=== PATIENT | male | born 1980 | race Caucasian/White ===

== ENCOUNTER 2017-12-25 13:29 | Emergency (ER) | payer OTHER, SELFPAY ==
--- NOTE | 2017-12-25 13:32 | ED_ITS ---
HPI - Chest Pain <ALMITA Hinkle - Last Filed: 12/25/17 21:30> General Chief Complaint: Chest Pain Stated Complaint: ANXIETY AND CHEST PAIN Time Seen by Provider: 12/25/17 13:31 History of Present Illness HPI narrative: 37-year-old male here for complaint of having chest pain on and off for the last 2 weeks. Patient has a history of an anxiety and atypical chest pain in the past. He denies any stressors or relievers of the pain. He reports that he has pain into his anterior chest over his left pectoral region. No nausea or vomiting. He reports that he did have a panic attack last night. No diaphoresis. No shortness of breath. He denies any other concerns or complaints. Related Data Home Medications Medication Instructions Recorded Confirmed famotidine [Pepcid] 20 mg PO QDAY #0 09/17/17 Previous Rx's Medication Instructions Recorded nortriptyline 10 mg PO HS #30 cap 10/14/17 Allergies Allergy/AdvReac Type Severity Reaction Status Date / Time No Known Drug Allergies Allergy Verified 12/25/17 13:52 Review of Systems <ALMITA Hinkle - Last Filed: 12/25/17 21:30> Constitutional Denies chills, Denies fever(s), Denies lethargy and Denies weakness Eyes Denies change in vision, Denies eye discharge, Denies irritation and Denies loss of vision Cardiovascular Reports chest pain, Denies dyspnea and Denies dyspnea on exertion Respiratory Denies cough, Denies dyspnea, Denies dyspnea on exertion and Denies wheezing Genitourinary Denies hematuria, Denies flank pain, Denies urinary incontinence and Denies urinary urgency Integumentary/Breasts Denies pruritus, Denies erythema, Denies rash and Denies wounds Neurologic Denies loss of vision and Denies weakness Psychiatric Reports anxiety Allergic/Immunologic Denies wheezing Exam <ALMITA Hinkle - Last Filed: 12/25/17 21:30> Initial Vital Signs Initial Vital Signs: Vital Signs Temperature 98.3 F 12/25/17 13:38 Pulse Rate 57 L 12/25/17 13:38 Respiratory Rate 16 12/25/17 13:38 Blood Pressure 139/84 H 12/25/17 13:38 Pulse Oximetry 99 12/25/17 13:38 Const General: cooperative and well developed Nutritional Appearance: well nourished Orientation: alert, awake, oriented x3 and not confused [facility] Mouth: oral mucosae normal, oropharynx normal and moist mucous membranes Chest Chest: normal inspection of the chest Resp Effort & Inspection: normal respiratory effort, able to speak in complete sentences and no respiratory distress Auscultation: clear to auscultation bilaterally Other: Perc score 0, Wells score of 0 Cardio Rate: regular rate Rhythm: regular rhythm Heart Sounds: no click, no gallops, no murmurs and no rubs Other: heart score 0 Skin General: no rashes or lesions noted, No jaundice and No petechiae Neuro General: alert, oriented x3, gait normal and no focal motor deficits Speech: speech normal <Nilesh Escamilla MD - Last Filed: 12/26/17 07:33> Initial Vital Signs Initial Vital Signs: Vital Signs Temperature 98.3 F 12/25/17 13:38 Pulse Rate 57 L 12/25/17 13:38 Respiratory Rate 16 12/25/17 13:38 Blood Pressure 139/84 H 12/25/17 13:38 Pulse Oximetry 99 12/25/17 13:38 Course <ALMITA Hinkle - Last Filed: 12/25/17 21:30> Orders Ordered: Discontinued Medications Aspirin (Aspirin Chew) 324 mg PO NOW ONE Stop: 12/25/17 13:42 Last Admin: 12/25/17 13:53 Dose: 324 mg Sodium Chloride (Normal Saline 0.9%) 1,000 mls @ 150 mls/hr IV CONT BELL Last Infusion: 12/25/17 15:39 Dose: 0 mls/hr Admin: 12/25/17 13:53 Dose: 150 mls/hr Lorazepam (Ativan) 1 mg IV NOW ONE Stop: 12/25/17 14:43 Last Admin: 12/25/17 14:58 Dose: 1 mg Vital Signs - 8 hr 12/25/17 13:38 12/25/17 13:54 12/25/17 14:21 Temperature 98.3 F Pulse Rate 57 L 57 L 50 L Respiratory Rate 16 11 L 11 L Blood Pressure 139/84 H Blood Pressure [Left Arm] 139/84 H 115/66 Pulse Oximetry 99 96 95 12/25/17 15:00 12/25/17 15:39 Temperature Pulse Rate 56 L 58 L Respiratory Rate 11 L 17 Blood Pressure 103/74 Blood Pressure [Left Arm] 112/66 Pulse Oximetry 97 94 <Nilesh Escamilla MD - Last Filed: 12/26/17 07:33> Orders Ordered: Discontinued Medications Aspirin (Aspirin Chew) 324 mg PO NOW ONE Stop: 12/25/17 13:42 Last Admin: 12/25/17 13:53 Dose: 324 mg Sodium Chloride (Normal Saline 0.9%) 1,000 mls @ 150 mls/hr IV CONT BELL Last Infusion: 12/25/17 15:39 Dose: 0 mls/hr Admin: 12/25/17 13:53 Dose: 150 mls/hr Lorazepam (Ativan) 1 mg IV NOW ONE Stop: 12/25/17 14:43 Last Admin: 12/25/17 14:58 Dose: 1 mg Vital Signs - 8 hr 12/25/17 13:38 12/25/17 13:54 12/25/17 14:21 Temperature 98.3 F Pulse Rate 57 L 57 L 50 L Respiratory Rate 16 11 L 11 L Blood Pressure 139/84 H Blood Pressure [Left Arm] 139/84 H 115/66 Pulse Oximetry 99 96 95 12/25/17 15:00 12/25/17 15:39 Temperature Pulse Rate 56 L 58 L Respiratory Rate 11 L 17 Blood Pressure 103/74 Blood Pressure [Left Arm] 112/66 Pulse Oximetry 97 94 MDM - Chest Pain <ALMITA Hinkle - Last Filed: 12/25/17 21:30> Lab Data Result diagrams: 12/25/17 13:40 12/25/17 13:40 Lab Results 12/25/17 12/25/17 Range/Units 13:40 13:40 WBC 5.7 (4.5-11.0) X10^3/uL RBC 4.96 (4.5-5.9) X10^6/uL Hgb 15.5 (13.5-17.5) g/dL Hct 44.8 (41-53) % MCV 90.3 (80-100) fL MCH 31.3 (26-34) PG MCHC 34.6 (30-36) % RDW 13.0 (11.6-14.8) % Plt Count 214 (150-400) X10^3/uL Neut % (Auto) 53.4 (50-75) % Lymph % (Auto) 37.6 (25-40) % [place] % (Auto) 7.4 (3-14) % Eos % (Auto) 0.8 L (2-4) % Baso % (Auto) 0.8 (0-2) % Neut # (Auto) 3100 (9340-7257) /uL Sodium 143 (137-145) mmol/L Potassium 3.6 (3.4-5.1) mmol/L Chloride 106.0 (98-107) mmol/L Carbon Dioxide 27.0 (22-32) mmol/L BUN 11.0 (9-20) mg/dL Creatinine 0.70 (0.66-1.25) mg/dL Estimated GFR > 60.0 (>60) mL/min BUN/Creatinine Ratio 15.7 (6-22) Glucose 103 H (70-100) mg/dL Calcium 9.2 (8.4-10.2) mg/dL Total Bilirubin 0.5 (0.2-1.3) mg/dL AST 17 (17-59) IU/L ALT 29 (21-72) IU/L Alkaline Phosphatase 53 (38-126) U/L Total Creatine Kinase 52 L (55-170) U/L Troponin I < 0.012 (0.01-0.034) ng/mL Total Protein 7.0 (6.3-8.2) g/dL Albumin 4.2 (3.5-5.0) g/dL Globulin 2.8 (1.7-4.1) g/dL Albumin/Globulin Ratio 1.5 (1.0-2.8) Lipase 113 (23-300) U/L Imaging Data Chest x-ray: Radiologist's impression: PROCEDURE: XR CHEST 1V INDICATIONS: Chest pain TECHNIQUE: One view of the chest was acquired. COMPARISON: [facility], , CHEST 1 VIEW, 09/11/2017, 0:01. FINDINGS: Surgical changes and devices: None. Lungs and pleura: No pleural effusions or pneumothorax. Lungs are clear. Mediastinum: Mediastinal contours appear normal. Heart size is normal. Bones and chest wall: No suspicious bony lesions. Overlying soft tissues appear unremarkable. IMPRESSION: No acute cardiopulmonary disease. Dictated by: Talon Klein M.D. on 12/25/2017 at 14:54 Approved by: Talon Klein M.D. on 12/25/2017 at 15:03 ECG Data Interpretation: EKG shows sinus bradycardia. No ST elevation or depression. No ectopy. Ventricular rate of 58. AL interval of 152. QRS duration of 111. QT of 414. EKG similar to a prior EKG dated September 11, 2017 MDM Narrative Medical decision making narrative: CBC and Chem panel were obtained were unremarkable. Cardiac enzymes was obtained and was negative. Patient had Wells score of 0 and perC core of 0. Chest x-ray was obtained was negative for any acute findings. EKG shows sinus bradycardia with no ST elevation or depression. No ectopy. Signs and symptoms presents as chest pain most likely related to anxiety or chest wall pain. [id number] Tylenol or Motrin as needed for any discomfort. Follow up with primary care provider in the next few days for re-evaluation and discussion of anxiety treatment. For any worsening symptoms return to the emergency room. <Nilesh Escamilla MD - Last Filed: 12/26/17 07:33> Lab Data Lab Results 12/25/17 12/25/17 Range/Units 13:40 13:40 WBC 5.7 (4.5-11.0) X10^3/uL RBC 4.96 (4.5-5.9) X10^6/uL Hgb 15.5 (13.5-17.5) g/dL Hct 44.8 (41-53) % MCV 90.3 (80-100) fL MCH 31.3 (26-34) PG MCHC 34.6 (30-36) % RDW 13.0 (11.6-14.8) % Plt Count 214 (150-400) X10^3/uL Neut % (Auto) 53.4 (50-75) % Lymph % (Auto) 37.6 (25-40) % [place] % (Auto) 7.4 (3-14) % Eos % (Auto) 0.8 L (2-4) % Baso % (Auto) 0.8 (0-2) % Neut # (Auto) 3100 (3820-0733) /uL Sodium 143 (137-145) mmol/L Potassium 3.6 (3.4-5.1) mmol/L Chloride 106.0 (98-107) mmol/L Carbon Dioxide 27.0 (22-32) mmol/L BUN 11.0 (9-20) mg/dL Creatinine 0.70 (0.66-1.25) mg/dL Estimated GFR > 60.0 (>60) mL/min BUN/Creatinine Ratio 15.7 (6-22) Glucose 103 H (70-100) mg/dL Calcium 9.2 (8.4-10.2) mg/dL Total Bilirubin 0.5 (0.2-1.3) mg/dL AST 17 (17-59) IU/L ALT 29 (21-72) IU/L Alkaline Phosphatase 53 (38-126) U/L Total Creatine Kinase 52 L (55-170) U/L Troponin I < 0.012 (0.01-0.034) ng/mL Total Protein 7.0 (6.3-8.2) g/dL Albumin 4.2 (3.5-5.0) g/dL Globulin 2.8 (1.7-4.1) g/dL Albumin/Globulin Ratio 1.5 (1.0-2.8) Lipase 113 (23-300) U/L Discharge Plan Departure Patient Disposition: Home, Self-Care Clinical Impression: Chest pain Discharge Date/Time: 12/25/17 15:40 Interventions: ED Discharge Assessment Last Done: 12/25/17 15:39 Instructions: DI for Atypical Chest Pain Activity Restrictions/Additional Instructions: Laboratory results EKG and chest x-ray today were normal. Signs and symptoms presents as chest wall pain that is at times secondary to anxiety. Use over-the- counter Tylenol or Motrin as needed for any discomfort. Follow up with her primary care provider for further evaluation and treatment and discussion of anxiety medication treatment. For any worsening symptoms return to the emergency room. Prescriptions: No Action famotidine [Pepcid] 20 MG tablet 20 mg PO QDAY Qty: 0 RF: 0 nortriptyline 10 MG capsule 10 mg PO HS Qty: 30 RF: 11 Referrals: On License Of [facility] [Provider Group] <Nilesh Escamilla MD - Last Filed: 12/26/17 07:33> Sign Out Provider Sign Out Attestation: I attest to the documentation recorded. I was the attending of record and available in the ED throught course. I agree with assessment and plan.
[2017-12-25 13:38] VITALS: BP 139/84; PULSE 57; RESP 16; TEMP 36.8; O2SAT 99
--- NOTE | 2017-12-25 13:41 | DI.RAD.S_ITS ---
PROCEDURE: XR CHEST 1V INDICATIONS: Chest pain TECHNIQUE: One view of the chest was acquired. COMPARISON: [facility], , CHEST 1 VIEW, 09/11/2017, 0:01. FINDINGS: Surgical changes and devices: None. Lungs and pleura: No pleural effusions or pneumothorax. Lungs are clear. Mediastinum: Mediastinal contours appear normal. Heart size is normal. Bones and chest wall: No suspicious bony lesions. Overlying soft tissues appear unremarkable. IMPRESSION: No acute cardiopulmonary disease. Dictated by: Talon Klein M.D. on 12/25/2017 at 14:54 Approved by: Talon Klein M.D. on 12/25/2017 at 15:03
[2017-12-25] MEDS: SODIUM CHLORIDE 0.9% 1,000 ML 150 ML IV (13:53)
[2017-12-25] MEDS: ASPIRIN 81 MG TAB 324 MG PO (13:53)
[2017-12-25 13:54] VITALS: BP 139/84; PULSE 57; RESP 11; O2SAT 96
[2017-12-25 13:57] LABS: Add Manual Diff / Slide Review NO; Basophils Percent Auto 0.8 % (0-2); Eosinophils Percent Auto 0.8 % (2-4); Hematocrit 44.8 % (41-53); Hemoglobin 15.5 g/dL (13.5-17.5); Lymphocytes Percent Auto 37.6 % (25-40); Mean Corpuscular HGB Conc 34.6 % (30-36); Mean Corpuscular Hemoglobin 31.3 PG (26-34); Mean Corpuscular Volume 90.3 fL (80-100); Monocytes Percent Auto 7.4 % (3-14); Neutrophils Absolute Auto 3100 /uL (3000-5900); Neutrophils Percent Auto 53.4 % (50-75); Platelet Count 214 X10^3/uL (150-400); Red Blood Cell Count 4.96 X10^6/uL (4.5-5.9); White Blood Cell Count 5.7 X10^3/uL (4.5-11.0)
[2017-12-25 14:14] LABS: Alanine Aminotransferase 29 IU/L (21-72); Albumin 4.2 g/dL (3.5-5.0); Albumin Globulin Ratio 1.5 (1.0-2.8); Alkaline Phosphatase 53 U/L (38-126); Aspartate Aminotransferase 17 IU/L (17-59); BUN Creatinine Ratio 15.7 (6-22); Bilirubin Total 0.5 mg/dL (0.2-1.3); Calcium 9.2 mg/dL (8.4-10.2); Creatine Kinase 52 U/L (55-170); Estimated Glomerular Filt Rate > 60.0 mL/min (>60); Globulin 2.8 g/dL (1.7-4.1); Glucose 103 mg/dL (70-100); HEMOLYSIS < 15 (0-50); Lipase 113 U/L (23-300); Potassium 3.6 mmol/L (3.4-5.1); Sodium 143 mmol/L (137-145)
[2017-12-25 14:21] VITALS: BP 115/66; PULSE 50; RESP 11; O2SAT 95
[2017-12-25 14:27] LABS: Troponin I < 0.012 ng/mL (0.01-0.034)
[2017-12-25] MEDS: LORazepam 2 MG/ML SYRINGE 1 MG IV (14:58)
[2017-12-25 15:00] VITALS: BP 112/66; PULSE 56; RESP 11; O2SAT 97
[2017-12-25 15:39] VITALS: BP 103/74; PULSE 58; RESP 17; O2SAT 94
== END 2017-12-25 15:40 | disposition home or self-care (01) ==
PROVIDERS: Emergency Provider Nurse Practitioner Family
DX: R07.9 Chest pain, unspecified (principal)
CPT/HCPCS: 36591; 71045; 80053; 82550; 82553; 83690; 84484; 85025; 93005; 93041; 96361; 96374; 99283; 99285; J2060

== ENCOUNTER → 2018-03-25 16:35 | Outpatient (CLI) | payer OTHER, SELFPAY ==
--- NOTE | 2018-03-25 16:39 | DI.RAD.S_ITS ---
PROCEDURE: XR FOREARM RT 2V INDICATIONS: Nail puncture to distal radial forearm. TECHNIQUE: 2 views of the forearm were acquired. COMPARISON: None. FINDINGS: Bones: No fractures or dislocations. No suspicious bony lesions. Soft tissues: No suspicious soft tissue calcifications or masses. A small superficial foreign body adjacent to the base of the first metacarpal. IMPRESSION: 1. No fracture or dislocation. 2. Small superficial foreign body adjacent to the base of the first metacarpal. Dictated by: Talon Klein M.D. on 03/25/2018 at 17:12 Approved by: Talon Klein M.D. on 03/25/2018 at 17:14
== END ==
PROVIDERS: Visit Provider Physician Assistant
DX: S51.841A Puncture wound with foreign body of right forearm, initial encounter (principal)
CPT/HCPCS: 73090

== ENCOUNTER → 2018-04-14 15:48 | Outpatient (CLI) | payer OTHER, SELFPAY ==
[2018-04-14 16:59] LABS: Add Manual Diff / Slide Review NO; Basophils Percent Auto 0.4 % (0-2); Eosinophils Percent Auto 1.5 % (2-4); Hematocrit 47.4 % (41-53); Lymphocytes Percent Auto 33.2 % (25-40); Mean Corpuscular HGB Conc 33.9 % (30-36); Mean Corpuscular Hemoglobin 31.3 PG (26-34); Mean Corpuscular Volume 92.4 fL (80-100); Neutrophils Absolute Auto 4500 /uL (3000-5900); Neutrophils Percent Auto 56.9 % (50-75); Platelet Count 240 X10^3/uL (150-400); Red Blood Cell Count 5.13 X10^6/uL (4.5-5.9); Red Cell Distribution Width 13.4 % (11.6-14.8); White Blood Cell Count 7.8 X10^3/uL (4.5-11.0)
[2018-04-14 17:12] LABS: Alanine Aminotransferase 37 IU/L (21-72); Albumin 4.5 g/dL (3.5-5.0); Albumin Globulin Ratio 1.6 (1.0-2.8); Alkaline Phosphatase 69 U/L (38-126); Amylase 65 U/L (30-110); Aspartate Aminotransferase 25 IU/L (17-59); BUN Creatinine Ratio 21.4 (6-22); Bilirubin Total 0.3 mg/dL (0.2-1.3); Blood Urea Nitrogen 15 mg/dL (9-20); Calcium 10.1 mg/dL (8.4-10.2); Carbon Dioxide 28 mmol/L (22-32); Chloride 105 mmol/L (98-107); Estimated Glomerular Filt Rate > 60.0 mL/min (>60); Globulin 2.9 g/dL (1.7-4.1); Glucose 91 mg/dL (70-100); HEMOLYSIS 19 (0-50); Lipase 176 U/L (23-300); Potassium 5.2 mmol/L (3.4-5.1); Sodium 147 mmol/L (137-145); Total Protein 7.4 g/dL (6.3-8.2)
== END ==
PROVIDERS: PCP Internal Medicine; Visit Provider Internal Medicine
DX: K21.9 Gastro-esophageal reflux disease without esophagitis (principal); R07.9 Chest pain, unspecified
CPT/HCPCS: 36415; 80053; 82150; 83690; 85025

== ENCOUNTER → 2018-04-28 13:42 | Outpatient (CLI) | payer OTHER, SELFPAY ==
--- NOTE | 2018-04-28 13:44 | DI.ECHO.S_ITS ---
[facility] +---------+ : : [address] : [place] [place] : : : : [id number] : : : : Phone: [phone] Echocardiogram Report + + :Name: MARY GARDUNO Study Date: 04/28/2018 Height: 71 in : :[facility] Weight: 255 lb : : Gender: Male BSA: 2.3 m2 : :: 1980 Age: 37 yrs BP: 116/76 mmHg: :Reason For Study: Chest pain : : Performed By: Mandie Saldaña : :Referring: JESS CASTRO : + + Interpretation Summary 1) Normal left ventricular thickness, size, wall motion, and systolic function (EF 60-65%). 2) Normal right ventricular size and function. 3) No significant valvular abnormalities. 4) No pericardial effusion present. 5) No prior Echo available for comparison. Procedure: A two-dimensional transthoracic echocardiogram with color flow and Doppler was performed. The study quality was technically adequate. There is no prior echocardiogram noted for this patient. The patient was in normal sinus rhythm during the exam. Left Ventricle: The left ventricle is normal in size, wall thickness, and systolic function without any focal wall motion abnormalities. The ejection fraction is estimated to be 60-65%. Assessment of diastolic parameters indicates normal left ventricular diastolic function and normal filling pressures. Right Ventricle: The right ventricle grossly appears normal in size with probable normal systolic function. Atria: The left atrial size is normal. Right atrial size is normal. The interatrial septum is intact with no evidence for an atrial septal defect. Mitral Valve: The mitral valve is normal in structure and function. There is no mitral regurgitation noted. Aortic Valve: The aortic valve is trileaflet. The aortic valve opens well. There is no aortic valve stenosis. No aortic regurgitation is present. Tricuspid Valve: The tricuspid valve is normal in structure and function. No tricuspid regurgitation. Pulmonary artery pressures cannot be estimated because of the lack of a measurable TR jet velocity. Pulmonic Valve: The pulmonic valve is normal in structure and function. There is no pulmonic valvular regurgitation. Great Vessels: The aortic root is normal size. The dimensions of the ascending aorta are normal. The IVC is of normal diameter and collapses greater than 50% with a sniff. This suggests a low right atrial pressure of 3 mm Hg. Pericardium/ Pleura There is no pericardial effusion. There is no pleural effusion. MMode/2D Measurements & Calculations LVIDd: 4.5 cm Ao root diam: 3.4 cm LVIDs: 3.0 cm Aortic Jxn: 2.6 cm FS: 33.0 % asc Aorta Diam: 3.1 cm EPSS: 0.41 cm Ao Arch Diam (Prox Trans): 2.3 cm IVSd: 0.96 cm LVPWd: 0.78 cm LV king. diameter/BSA (cm/m^2): 1.9 LV sys. diameter/BSA (cm/m^2): 1.3 LA dimension: 3.5 cm RA long axis: 5.1 cm LA A2 area: 17.5 cm2 RA area: 15.0 cm2 LA A4 area: 21.7 cm2 RA vol: 37.3 ml LA length (vol): 5.4 cm RA : 15.9 ml/m2 LA vol: 59.2 ml IVC diam: 1.8 cm LA vol index: 25.3 ml/m2 RVDd major: 6.4 cm RVD1 (basal): 3.4 cm RVD2 (mid): 3.1 cm Doppler Measurements & Calculations Ao V2 max: 107.3 cm/sec MV E max douglas: 95.7 cm/sec Ao V2 mean: 67.5 cm/sec MV A max douglas: 53.2 cm/sec Ao max P.6 mmHg MV E/A: 1.8 Ao mean P.2 mmHg Med Peak E' Douglas: 9.2 cm/sec Ao V2 VTI: 21.7 cm E/E' med: 10.4 Lat Peak E' Douglas: 14.5 cm/sec E/E' lat: 6.6 E/e' average: 8.5 MV dec time: 0.15 sec MV P1/2t: 45.4 msec PA V2 max: 65.7 cm/sec MV P1/2t max douglas: 95.8 cm/sec PA V2 mean: 43.5 cm/sec MVA(P1/2t): 4.8 cm2 PA mean P.88 mmHg PA Accel Time: 0.18 sec Reading Physician:02:[id number] PM
== END ==
PROVIDERS: PCP Internal Medicine; Visit Provider Internal Medicine
DX: R07.9 Chest pain, unspecified (principal); Z82.49 Family history of ischemic heart disease and other diseases of the circulatory system
CPT/HCPCS: 93306

== ENCOUNTER → 2018-11-17 12:28 | Outpatient (REF) | payer OTHER, SELFPAY ==
[2018-11-17 12:43] LABS: D Dimer < 200 ng/mL (<230)
== END ==
LOC: LAB 12:28
PROVIDERS: PCP Internal Medicine; Visit Provider Internal Medicine
DX: M79.605 Pain in left leg (principal)
CPT/HCPCS: 85379

== ENCOUNTER → 2020-07-08 08:46 | Outpatient (CLI) | payer OTHER, SELFPAY ==
--- NOTE | 2020-07-08 | DI.RAD.S_ITS ---
PROCEDURE: XR KNEE RT 3V INDICATIONS: SHADI KNEES TECHNIQUE: 3 views of the knee were acquired. COMPARISON: None. FINDINGS: Bones: No fractures or dislocations. No suspicious bony lesions. Mild tricompartmental knee joint degeneration secondary to osteoarthritis. Soft tissues: No joint effusion. No suspicious soft tissue calcifications. IMPRESSION: Mild osteoarthritis. Dictated by: Talon Klein M.D. on 07/08/2020 at 13:28 Approved by: Talon Klein M.D. on 07/08/2020 at 13:28
--- NOTE | 2020-07-08 | DI.RAD.S_ITS ---
PROCEDURE: XR KNEE LT 3V INDICATIONS: SHADI KNEES TECHNIQUE: 3 views of the knee were acquired. COMPARISON: None. FINDINGS: Bones: No fractures or dislocations. No suspicious bony lesions. Mild tricompartmental osteoarthritic changes are present. Soft tissues: No joint effusion. No suspicious soft tissue calcifications. IMPRESSION: Mild osteoarthritis. Dictated by: Talon Klein M.D. on 07/08/2020 at 13:22 Approved by: Talon Klein M.D. on 07/08/2020 at 13:27
== END ==
PROVIDERS: PCP Internal Medicine; Referring Provider Internal Medicine; Visit Provider Internal Medicine
DX: M25.562 Pain in left knee (principal); M25.561 Pain in right knee; M17.0 Bilateral primary osteoarthritis of knee
CPT/HCPCS: 73562

== ENCOUNTER 2020-12-15 14:51 | Emergency (ER) | payer OTHER, SELFPAY ==
[2020-12-15 14:53] VITALS: BP 138/80; PULSE 70; RESP 15; TEMP 36.9; O2SAT 98; BMI 33.5
--- NOTE | 2020-12-15 17:36 | DI.RAD.S_ITS ---
PROCEDURE: XR CHEST 1V INDICATIONS: chest pain TECHNIQUE: One view of the chest was acquired. COMPARISON: [facility], CR, XR CHEST 1V, 12/25/2017, 13:52. FINDINGS: Surgical changes and devices: None. Lungs and pleura: Lungs are clear. No pleural effusions or pneumothorax. Mediastinum: Mediastinal contours appear normal. Heart size is normal. Bones and chest wall: No suspicious bony lesions. Overlying soft tissues appear unremarkable. IMPRESSION: No acute cardiopulmonary disease. Dictated by: Talon Klein M.D. on 12/15/2020 at 18:33 Approved by: Talon Klein M.D. on 12/15/2020 at 18:34
--- NOTE | 2020-12-15 17:49 | ED_ITS ---
HPI - Extremity Problem General Chief complaint: Extremity Problem,Nontraumatic Stated complaint: swelling in left leg with pain Time Seen by Provider: 12/15/20 16:15 Source: patient Mode of arrival: Ambulatory Limitations: no limitations History of Present Illness HPI Narrative: Patient is a 40-year-old male with history of anxiety presenting with possible left leg swelling and chest pain. He says he woke up today and thought that it was swollen. He denies any injury. He when he gets very anxious he also has chest discomfort on the left side of his chest. He says that whenever he gets anxious and is focused on something he gets chest pain. Chest pain today has been constant it is nonradiating it is in his left pectoral muscle. It is not any worse with movement. He denies any shortness of breath. He has had no sedentary lifestyle, no prior history of DVT, no recent travel. He is going to physical therapy for bilateral knee pain. He denies any injury. He has no numbness tingling or weakness in his lower extremities. He has no redness or fever. MD Complaint: extremity swelling Location: left and lower extremity Related Data Previous Rx's Medication Instructions Recorded sertraline 50 mg tablet 75 mg PO DAILY #45 tab 04/14/18 clonidine HCl 0.2 mg tablet 0.2 mg PO BEDTIME #30 tab 09/15/18 Allergies Allergy/AdvReac Type Severity Reaction Status Date / Time buspirone AdvReac Mild Hallucinating Verified 12/15/20 14:55 and hyperactivity propranolol AdvReac Mild bradycardia Verified 12/15/20 14:55 Review of Systems Review of Systems Narrative: GENERAL: Denies chills, fatigue, malaise, fever, sweats, travel HEENT: Denies sinus pain, ear pain, sore throat, difficulty swallowing, neck pain RESPIRATORY: Denies dyspnea, cough, wheezing, hemoptysis, sputum. CARDIOVASCULAR: + chest pain, see HPI GASTROINTESTINAL: Denies nausea, vomiting, abdominal pain, diarrhea, constipation, melena. : Denies dysuria, frequency, incontinence, hematuria, urinary retention, flank pain. MUSCULOSKELETAL:+ leg swelling, see HPI SKIN: No rash, no erythema, no pruritus NEUROLOGIC: Denies weakness, dizziness, headache, numbness, change in speech, confusion PSYCHIATRIC: No concerning psychosocial issues. 12 point review of systems is negative except for those stated above and HPI Patient History Medical History GERD (gastroesophageal reflux disease) (~2015) Headache (~2016) Kidney stones (~2013) Migraines (~2016) Family History Grandfather Age: 83 Diabetes mellitus Heart disease Stroke Grandfather Age: 83 Pancreatic cancer Grandmother Age: 73 Breast cancer Grandmother No problems noted. Social History Smoking Status: Never smoker Smoking Status: Never smoker alcohol intake frequency: holidays/special occasions only Substance Use Type: does not use Exam Initial Vital Signs Initial Vital Signs: Vital Signs Temperature 98.5 F 12/15/20 14:53 Pulse Rate 70 12/15/20 14:53 Respiratory Rate 15 12/15/20 14:53 Blood Pressure 138/80 12/15/20 14:53 Pulse Oximetry 98 12/15/20 14:53 GENERAL: Alert 40-year-old male and in no acute distress. HEENT: Head atraumatic,EOMI, pupils reactive, face symmetric, moist mucous membranes CARDIOVASCULAR: Regular rate and rhythm without murmurs, rubs or gallops. RESPIRATORY: Breath sounds equal bilaterally, no wheezes rales or rhonchi. ABDOMEN: Soft, nontender. Normoactive bowel sounds all 4 quadrants. No guarding or rebound. EXTREMITIES: Normal range of motion, no clubbing or edema. Neurovascularly intact Left lower extremity no obvious swelling no erythema strong distal pedal pulse NEUROLOGICAL: Alert and oriented x4.Normal gait and speech. SKIN: Warm, dry, no laceration, no petechiae, no rashes or lesions. Scores HEART Score Heart Score history: Slightly Suspicious Heart Score EKG: Normal Heart Score Age: < 45 years old Heart Score risk factors: No known risk factors Heart Score troponin: < or = to normal limit Heart Score Total: 0 Wells' Criteria for DVT Active Cancer (Treatment within 6 months): No Bedridden recently >3 days or major surgery within 4 weeks: No Calf Swelling >3cm compared to other leg: No Collateral (nonvericose) superficial veins present: No Entire leg swollen: No Localized tenderness along the deep vein system: No Pitting edema, confined to symtomatic leg: No Paralysis, paresis, or recent plaster immobilization of ext: No Previously documented DVT: No Alternative dx to DVT as likely or more likely: No Wells' criteria for DVT: 0 Course Orders Ordered: ED Orders 12/15/20 17:35 D Dimer Stat 12/15/20 17:36 XR chest 1V Stat Complete Blood Count AUTO DIFF Stat Comprehensive Metabolic Panel Stat Lipase Stat Troponin & CK Cardiac Panel Stat EKG-12 Lead Stat Vital Signs Vital signs: Vital Signs - 8 hr 12/15/20 14:53 Temperature 98.5 F Pulse Rate 70 Respiratory Rate 15 Blood Pressure 138/80 Pulse Oximetry 98 MDM - Extremity (Nontraumatic) Lab Data Result diagrams: 12/15/20 18:02 12/15/20 18:02 Labs: Lab Results 12/15/20 12/15/20 12/15/20 Range/Units 18:02 18:02 18:02 WBC 7.7 (4.5-11.0) X10^3/uL RBC 4.90 (4.5-5.9) X10^6/uL Hgb 15.4 (13.5-17.5) g/dL Hct 44.9 (41-53) % MCV 91.6 (80-100) fL MCH 31.4 (26-34) PG MCHC 34.3 (30-36) % RDW 13.2 (11.6-14.8) % Plt Count 205 (150-400) X10^3/uL Neut % (Auto) 61.6 (50-75) % Lymph % (Auto) 29.9 (25-40) % [place] % (Auto) 6.8 (3-14) % Eos % (Auto) 1.1 L (2-4) % Baso % (Auto) 0.6 (0-2) % Neut # (Auto) 4800 (8496-6003) /uL Lymph # (Auto) 2300 (8542-8310) /uL [place] # (Auto) 500 (0-900) /uL Eos # (Auto) 100 (0-450) /uL Baso # (Auto) 0 (0-100) /uL D-Dimer < 200 (<230) ng/mL Sodium 137 (137-145) mmol/L Potassium 4.0 (3.4-5.1) mmol/L Chloride 104 (98-107) mmol/L Carbon Dioxide 25 (22-32) mmol/L BUN 17 (9-20) mg/dL Creatinine 0.70 (0.66-1.25) mg/dL Estimated GFR > 60.0 (>60) mL/min BUN/Creatinine Ratio 24.3 H (6-22) Glucose 87 (70-100) mg/dL Calcium 10.0 (8.4-10.2) mg/dL Total Bilirubin 0.4 (0.2-1.3) mg/dL AST 29 (17-59) IU/L ALT 27 (<50) IU/L Alkaline Phosphatase 64 (38-126) U/L Total Creatine Kinase 72 (55-170) U/L CK-MB (CK-2) TNP CK-MB (CK-2) Rel Index TNP Troponin I < 0.012 (0.01-0.034) ng/mL Total Protein 7.4 (6.3-8.2) g/dL Albumin 4.5 (3.5-5.0) g/dL Globulin 2.9 (1.7-4.1) g/dL Albumin/Globulin Ratio 1.6 (1.0-2.8) Lipase 104 (23-300) U/L Imaging Data Chest x-ray: Radiologist's Impression: PROCEDURE: XR CHEST 1V INDICATIONS: chest pain TECHNIQUE: One view of the chest was acquired. COMPARISON: [facility], , XR CHEST 1V, 12/25/2017, 13:52. FINDINGS: Surgical changes and devices: None. Lungs and pleura: Lungs are clear. No pleural effusions or pneumothorax. Mediastinum: Mediastinal contours appear normal. Heart size is normal. Bones and chest wall: No suspicious bony lesions. Overlying soft tissues appear unremarkable. IMPRESSION: No acute cardiopulmonary disease. Dictated by: Talon Klein M.D. on 12/15/2020 at 18:33 ECG Data Attestation EKG: I personally reviewed and interpreted this ECG as follows: Interpretation: Normal sinus rhythm rate 62 p.r. interval [address] changes no T-wave inversions Q-wave noted in lead 3 S wave in lead 1 MDM Narrative Medical decision making narrative: At this time patient is low risk Wells score 1 with a negative DVT no further testing the. Patient is very unlikely to have DVT. I really do not appreciate any swelling no erythema to suggest cellulitis. I believe his chest pain to be anxiety related. He has a low risk heart score EKG and blood work are overall reassuring. He is feeling better knowing that he does not have a blood clot. Discharge Plan Departure Patient Disposition: Home Clinical Impression: Atypical chest pain, Left leg pain Instructions: DI for Atypical Chest Pain Activity Restrictions/Additional Instructions: *You have been diagnosed with left leg pain and atypical chest pain *What to do: At this time there is no evidence that have blood clot infection in her left leg. Your chest pain is likely from your anxiety your heart and workup is overall reassuring. Recommend that he restart your anxiety medication or at least talk to her primary care provider about it. *Continue to take medications as directed *Follow up with your primary care provider in 2-3 days *Return to ER if you should have increasing chest pain, leg swelling, redness difficulty breathing or any new, worsening or concerning symptoms Prescriptions: No Action clonidine HCl 0.2 mg tablet 0.2 mg PO BEDTIME Qty: 30 RF: 1 sertraline 50 mg tablet 75 mg PO DAILY Qty: 45 RF: 3 Referrals: Tayler Singh ARNP [Primary Care Provider] -
[2020-12-15 18:11] LABS: Add Manual Diff / Slide Review NO; Basophils Absolute Auto 0 /uL (0-100); Basophils Percent Auto 0.6 % (0-2); Eosinophils Absolute Auto 100 /uL (0-450); Eosinophils Percent Auto 1.1 % (2-4); Hematocrit 44.9 % (41-53); Hemoglobin 15.4 g/dL (13.5-17.5); Lymphocytes Absolute Auto 2300 /uL (1100-4500); Lymphocytes Percent Auto 29.9 % (25-40); Mean Corpuscular HGB Conc 34.3 % (30-36); Mean Corpuscular Hemoglobin 31.4 PG (26-34); Mean Corpuscular Volume 91.6 fL (80-100); Monocytes Absolute Auto 500 /uL (0-900); Monocytes Percent Auto 6.8 % (3-14); Neutrophils Absolute Auto 4800 /uL (1500-7000); Neutrophils Percent Auto 61.6 % (50-75); Platelet Count 205 X10^3/uL (150-400); Red Cell Distribution Width 13.2 % (11.6-14.8); White Blood Cell Count 7.7 X10^3/uL (4.5-11.0)
[2020-12-15 18:28] LABS: Alanine Aminotransferase 27 IU/L (<50); Albumin 4.5 g/dL (3.5-5.0); Albumin Globulin Ratio 1.6 (1.0-2.8); Alkaline Phosphatase 64 U/L (38-126); Aspartate Aminotransferase 29 IU/L (17-59); BUN Creatinine Ratio 24.3 (6-22); Bilirubin Total 0.4 mg/dL (0.2-1.3); Blood Urea Nitrogen 17 mg/dL (9-20); Carbon Dioxide 25 mmol/L (22-32); Chloride 104 mmol/L (98-107); Creatine Kinase 72 U/L (55-170); Estimated Glomerular Filt Rate > 60.0 mL/min (>60); Globulin 2.9 g/dL (1.7-4.1); Glucose 87 mg/dL (70-100); HEMOLYSIS < 15 (0-50); Lipase 104 U/L (23-300); Sodium 137 mmol/L (137-145); Total Protein 7.4 g/dL (6.3-8.2)
[2020-12-15 18:38] LABS: Troponin I < 0.012 ng/mL (0.01-0.034)
[2020-12-15 18:39] LABS: D Dimer < 200 ng/mL (<230)
[2020-12-15 18:57] VITALS: BP 141/84; PULSE 62; O2SAT 98
== END 2020-12-15 18:58 | disposition home or self-care (01) ==
PROVIDERS: Emergency Provider Emergency Medicine; PCP Internal Medicine
DX: R07.89 Other chest pain (principal); M79.605 Pain in left leg
CPT/HCPCS: 36415; 71045; 80053; 82550; 83690; 84484; 85025; 85379; 93005; 93010; 99282; 99284

== ENCOUNTER 2021-04-25 11:37 | Emergency (ER) | payer OTHER, SELFPAY ==
[2021-04-25 11:52] VITALS: BP 119/74; PULSE 125; RESP 16; TEMP 37.6; O2SAT 95; BMI 34.2
[2021-04-25 12:24] LABS: COVID19 -Nasal RAPID POSITIVE (Negative)
[2021-04-25 12:27] VITALS: O2SAT 96
[2021-04-25 12:28] VITALS: BP 119/76; PULSE 123; RESP 26; O2SAT 96
[2021-04-25 12:30] VITALS: BP 116/66; PULSE 124; RESP 20; O2SAT 95
[2021-04-25] MEDS: SODIUM CHLORIDE 0.9% 1,000 ML 1000 ML IV (12:50)
[2021-04-25 13:00] VITALS: BP 124/79; PULSE 109; RESP 14; O2SAT 92
[2021-04-25 13:30] VITALS: BP 125/77; PULSE 107; RESP 20; O2SAT 93
--- NOTE | 2021-04-25 13:53 | ED.GENADULT ---
HPI - General Adult General Chief complaint: Upper Respiratory Symptoms Stated complaint: covid positive, cough and feel dehydrated worse Time Seen by Provider: 04/25/21 12:11 Source: patient Mode of arrival: Ambulatory Limitations: no limitations History of Present Illness HPI narrative: Patient is a 40-year-old male. Does not have a definitive positive COVID diagnosis however has had a cough, feeling dehydrated, fatigue for the past 5 days. Patient is unvaccinated against COVID-19. His is positive for COVID. Related Data Previous Rx's Medication Instructions Recorded sertraline 50 mg tablet 75 mg PO DAILY #45 tab 04/14/18 clonidine HCl 0.2 mg tablet 0.2 mg PO BEDTIME #30 tab 09/15/18 ondansetron 4 mg disintegrating 4 mg PO Q6H PRN #14 tab 04/25/21 tablet Allergies Allergy/AdvReac Type Severity Reaction Status Date / Time buspirone AdvReac Mild Hallucinating Verified 04/25/21 11:54 and hyperactivity propranolol AdvReac Mild bradycardia Verified 04/25/21 11:54 Review of Systems Constitutional Constitutional: Reports fatigue, Reports headache(s) and Reports lethargy ENT Ears, Nose, Mouth, and Throat: Reports headache(s) and Denies sore throat Cardiovascular Cardiovascular: Reports system reviewed and no additional complaints, except as documented and Reports dyspnea Respiratory Respiratory: Reports cough and Reports dyspnea Gastrointestinal Gastrointestinal: Reports system reviewed and no additional complaints, except as documented Musculoskeletal Musculoskeletal: Reports system reviewed and no additional complaints, except as documented Integumentary/Breasts Skin/Breast: Reports system reviewed and no additional complaints, except as documented Neurologic Neurologic: Reports system reviewed and no additional complaints, except as documented and Reports headache(s) Endocrine Endocrine: Reports fatigue Hematologic/Lymphatic On Anticoagulants: No Allergic/Immunologic Allergic/Immunologic: Reports system reviewed and no additional complaints, except as documented Patient History Medical History GERD (gastroesophageal reflux disease) (~2015) Headache (~2015) Kidney stones (~2013) Migraines (~2015) Family History Grandfather Age: 83 Diabetes mellitus Heart disease Stroke Grandfather Age: 83 Pancreatic cancer Grandmother Age: 73 Breast cancer Grandmother No problems noted. Social History Smoking Status: Never smoker Smoking Status: Never smoker alcohol intake frequency: holidays/special occasions only Substance Use Type: does not use Exam Initial Vital Signs Initial Vital Signs: Vital Signs Temperature 99.7 F H 04/25/21 11:52 Pulse Rate 125 H 04/25/21 11:52 Respiratory Rate 16 04/25/21 11:52 Blood Pressure 119/74 04/25/21 11:52 Pulse Oximetry 95 04/25/21 11:52 Const General: cooperative, healthy appearing, comfortable and well developed Limitations: mental status not altered HENMT Head: normal to inspection and normocephalic Neck Neck: normal visual inspection Resp Effort & Inspection: normal respiratory effort Auscultation: clear to auscultation bilaterally Cardio Rate: regular rate Rhythm: regular rhythm GI Inspection: normal to inspection and non-distended General: bimanual renal exam normal bilaterally Skin General: no rashes or lesions noted Lesions: no lesions Rashes: no rashes Neuro General: patient alert, patient awake, patient oriented x3 and moves all extremities Extrem General: normal to inspection and capillary refill normal Psych Appearance: grossly normal and well kempt Course Orders Ordered: ED Orders 04/25/21 12:02 COVID19 -Nasal swab/Pre-Proc Stat Discontinued Medications Sodium Chloride (Normal Saline 0.9%) 1,000 mls @ 1,000 mls/hr IV BOLUS ONE Stop: 04/25/21 13:29 Last Admin: 04/25/21 12:50 Dose: 1,000 mls/hr Documented by: PAMELA Vital Signs Vital signs: Vital Signs - 8 hr 04/25/21 11:52 04/25/21 12:27 04/25/21 12:28 Temperature 99.7 F H Pulse Rate 125 H 123 H Respiratory Rate 16 26 H Blood Pressure 119/74 119/76 Pulse Oximetry 95 96 96 04/25/21 12:30 04/25/21 13:00 04/25/21 13:30 Temperature Pulse Rate 124 H 109 H 107 H Respiratory Rate 20 14 20 Blood Pressure 116/66 124/79 125/77 Pulse Oximetry 95 92 93 Medical Decision Making Lab Data Labs: Lab Results 04/25/21 Range/Units 12:02 SARS-CoV-2 (PCR) Positive H (Negative) MDM Narrative Medical decision making narrative: Patient is nontoxic appearing. Not hypoxic. Was given fluids. Clear lung exam. Had a discussion with him about COVID-19. We did discuss quarantine. He is given return precautions and follow-up instructions. He expressed understanding and agreement. Discharge Plan Departure Patient Disposition: Home Clinical Impression: COVID-19 Instructions: DI for COVID-19 (Suspected or Confirmed ) Activity Restrictions/Additional Instructions: Your COVID test today was positive. You can take Tylenol for any fevers or body aches. You are to quarantine yourself for the next 10 days. You also need to be fever free for 24 hours and the rest your symptoms needed improving. Contact your primary doctor for follow-up. Return to the emergency department for any new or worsening symptoms. Prescriptions: New ondansetron 4 mg tablet,disintegrating 4 mg PO Q6H PRN (Reason: nausea and vomiting) Qty: 14 RF: 0 No Action clonidine HCl 0.2 mg tablet 0.2 mg PO BEDTIME Qty: 30 RF: 1 sertraline 50 mg tablet 75 mg PO DAILY Qty: 45 RF: 3 Referrals: Tayler Singh ARNP [Primary Care Provider] -
--- NOTE | 2021-05-05 09:50 | PC.NURSE ---
Late entry. one liter normal saline infused, stopped at 1350
== END 2021-04-25 14:03 | disposition home or self-care (01) ==
PROVIDERS: Emergency Provider Emergency Medicine; PCP Internal Medicine
DX: U07.1 COVID-19 (principal)
CPT/HCPCS: 87635; 96360; 99283; C9803

== ENCOUNTER → 2021-08-04 12:03 | Outpatient (CLI) | payer OTHER, SELFPAY ==
[2021-08-04 12:39] LABS: COVID19 -Nasal RAPID Negative (Negative)
== END ==
PROVIDERS: PCP Internal Medicine; Visit Provider Nurse Practitioner Family
DX: Z20.822 Contact with and (suspected) exposure to COVID-19 (principal)
CPT/HCPCS: 87635

== ENCOUNTER → 2022-09-14 07:28 | Outpatient (CLI) | payer OTHER, SELFPAY ==
[2022-09-14 09:20] LABS: Influenza A - CEPHEID Flu A NEGATIVE (NEGATIVE); Influenza B - CEPHEID Flu B NEGATIVE (NEGATIVE); Respiratory Syncytial Virus Negative (Negative)
[2022-09-14 09:22] LABS: COVID-19 CEPHEID 4-PLEX PCR Negative (Negative)
== END ==
PROVIDERS: PCP Internal Medicine; Visit Provider Registered Nurse
DX: J02.9 Acute pharyngitis, unspecified (principal); R05.9 Cough, unspecified; Z20.822 Contact with and (suspected) exposure to COVID-19
CPT/HCPCS: 0241U; 87070; 87147

== ENCOUNTER 2024-06-16 15:05 | Emergency (ER) | payer OTHER, SELFPAY ==
[2024-06-16] VITALS (9 sets, daily range): BP systolic 116–169; BP diastolic 76–100; PULSE 59–74; RESP 16–18; TEMP 36.9; O2SAT 96–99; BMI 38.3
--- NOTE | 2024-06-16 15:41 | DI.RAD.S_ITS ---
PROCEDURE: XR CHEST 1V INDICATIONS: chest pain TECHNIQUE: One view of the chest was acquired. COMPARISON: [facility], CR, XR CHEST 1V, 12/15/2020, 18:03. [facility], CR, XR CHEST 1V, 12/25/2017, 13:52. FINDINGS: Surgical changes and devices: None. Lungs and pleura: Low lung volumes. No dense consolidation or pleural effusions. Mediastinum: Heart size is normal and unchanged Bones and chest wall: Degenerative changes IMPRESSION: Low lung volumes. No acute radiographic abnormality on this single view study. Dictated by: Moody Rizo M.D. on 06/16/2024 at 16:36 Approved by: Moody Rizo M.D. on 06/16/2024 at 16:36
--- NOTE | 2024-06-16 17:10 | EKG_ITS ---
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
[2024-06-16 17:19] LABS: Add Manual Diff / Slide Review NO; Basophils Absolute Auto 100 /uL (0-100); Basophils Percent Auto 0.8 % (0-2); Eosinophils Absolute Auto 100 /uL (0-450); Eosinophils Percent Auto 1.3 % (2-4); Hematocrit 48.8 % (41-53); Hemoglobin 16.7 g/dL (13.5-17.5); Lymphocytes Absolute Auto 2800 /uL (1100-4500); Lymphocytes Percent Auto 31.8 % (25-40); Mean Corpuscular HGB Conc 34.2 % (30-36); Mean Corpuscular Hemoglobin 31.2 PG (26-34); Mean Corpuscular Volume 91.3 fL (80-100); Monocytes Absolute Auto 700 /uL (0-900); Monocytes Percent Auto 7.9 % (3-14); Neutrophils Absolute Auto 5200 /uL (1500-7000); Neutrophils Percent Auto 58.2 % (50-75); Platelet Count 263 X10^3/uL (150-400); Red Blood Cell Count 5.35 X10^6/uL (4.5-5.9); Red Cell Distribution Width 13.2 % (11.6-14.8); White Blood Cell Count 8.9 X10^3/uL (4.5-11.0)
[2024-06-16 17:26] LABS: Prothrombin Time 11.5 SECONDS (9.4-12.5)
[2024-06-16 17:29] LABS: PTT Partial Thromboplastin Tim 31 SECONDS (25.1-36.5)
[2024-06-16 17:31] LABS: Alanine Aminotransferase 26 IU/L (<50); Albumin 4.4 g/dL (3.5-5.0); Albumin Globulin Ratio 1.5 (1.0-2.8); Alkaline Phosphatase 60 U/L (38-126); Aspartate Aminotransferase 24 IU/L (17-59); BUN Creatinine Ratio 12.9 (6-22); Bilirubin Total 0.5 mg/dL (0.2-1.3); Blood Urea Nitrogen 11 mg/dL (9-20); Calcium 9.3 mg/dL (8.4-10.2); Carbon Dioxide 24 mmol/L (22-32); Chloride 107 mmol/L (98-107); Creatine Kinase 57 U/L (55-170); Estimated Glomerular Filt Rate > 60 mL/min (>60); Glucose 92 mg/dL (70-100); HEMOLYSIS 24 (0-50); Lipase 94 U/L (23-300); Magnesium 2.1 mg/dL (1.6-2.3); Potassium 4.4 mmol/L (3.4-5.1); Sodium 140 mmol/L (137-145); Total Protein 7.4 g/dL (6.3-8.2)
[2024-06-16 17:43] LABS: NT-proBNP (BNP-Adult 18+) < 20 pg/mL (<125); Troponin I < 0.012 ng/mL (0.01-0.034)
--- NOTE | 2024-06-16 18:39 | ED.ARRPALP ---
HPI - Arrhythmia/Palpitations General Chief Complaint: Arrhythmia/Palpitations Stated Complaint: vision went blurry,can't get heart rate down 20min Time Seen by Provider: 06/16/24 18:31 Source: patient Mode of arrival: Ambulatory History of Present Illness HPI narrative: 43-year-old male with history of anxiety and depression presents by private vehicle from home for an episode of elevated heart rate, flushing, blurry vision. Patient states that he was sitting at home watching TV when he felt a flush go over his body with a brief episode of blurred vision. He states that the flushing and blurred vision resolved, but afterwards his smart watch was registering a heart rate of 130-140 beats per minute. He states that the elevated heart rate persisted and so he decided to come to the emergency department for evaluation. Denies family history of heart disease, denies personal history of heart problems. States that he has been out of his clonidine and sertraline for several months due to lack of primary care follow up. He states that he would like a refill of these medications if possible. Patient also states that several days ago at work he had a severe cramp in his calf. He states that with his elevated heart rate and the calf pain that he experienced he was concerned that he may have a blood clot. Denies recent surgeries or immobilizations, denies recent prolonged travel. Denies personal or family history of blood clots. He has not felt calf pain since that episode several days ago. Related Data Previous Rx's Medication Instructions Recorded sertraline 50 mg tablet 75 mg (1.5 x 50 mg) PO DAILY #45 04/14/18 tabs clonidine HCl 0.2 mg tablet 0.2 mg PO BEDTIME #30 tabs 09/15/18 ondansetron 4 mg disintegrating 4 mg PO Q6H PRN nausea and 04/25/21 tablet vomiting #14 tabs amoxicillin 500 mg capsule 500 mg PO BID #20 caps 09/16/22 clonidine HCl 0.2 mg tablet 0.2 mg PO BEDTIME #30 tabs 06/16/24 sertraline 50 mg tablet 75 mg (1.5 x 50 mg) PO DAILY #60 06/16/24 tabs Allergies Allergy/AdvReac Type Severity Reaction Status Date / Time buspirone AdvReac Mild Hallucinating Verified 06/16/24 15:41 and hyperactivity propranolol AdvReac Mild bradycardia Verified 06/16/24 15:41 Patient History Medical History Migraines (~2015) Headache (~2015) Kidney stones (~2013) GERD (gastroesophageal reflux disease) (~2015) Family History Grandfather Age: 87 Diabetes mellitus Heart disease Stroke Grandfather Age: 87 Pancreatic cancer Grandmother Age: 77 Breast cancer Grandmother No problems noted. Social History Smoking Status: Never smoker Smoking Status: Never smoker alcohol intake frequency: holidays/special occasions only Substance Use Type: does not use Exam Initial Vital Signs Initial Vital Signs: Vital Signs Temperature 98.5 F 06/16/24 15:29 Pulse Rate 74 06/16/24 15:29 Respiratory Rate 16 06/16/24 15:29 Blood Pressure 169/97 H 06/16/24 15:29 Pulse Oximetry 96 06/16/24 15:29 Oxygen Delivery Method Room Air 06/16/24 15:29 Const: Awake, alert, no acute distress, nontoxic appearing Cardiac: regular rate, regular rhythm RESP: unlabored, clear bilaterally, no wheezing GI: Soft, nontender, nondistended Skin: Warm, Dry, intact, no rashes Neuro: AO x3, CN II-XII grossly intact, moves all extremities Course Orders Ordered: Discontinued Medications Aspirin (Aspirin 81 Mg Chew Tab) 324 mg PO NOW ONE Stop: 06/16/24 15:42 Last Admin: 06/16/24 18:34 Dose: Not Given Documented By: [facility] Vital Signs Vital signs: Vital Signs - 8 hr 06/16/24 15:29 06/16/24 18:29 06/16/24 18:30 Temperature 98.5 F Pulse Rate 74 63 63 Respiratory Rate 16 16 Blood Pressure 169/97 H 157/97 H Pulse Oximetry 96 97 98 Oxygen Delivery Method Room Air Room Air 06/16/24 18:30 06/16/24 18:31 06/16/24 18:31 Temperature Pulse Rate 63 66 Respiratory Rate Blood Pressure 146/85 H Pulse Oximetry 96 96 Oxygen Delivery Method 06/16/24 19:00 06/16/24 19:00 Temperature Pulse Rate 61 Respiratory Rate Blood Pressure 116/76 Pulse Oximetry 97 Oxygen Delivery Method MDM - Arrhythmia/Palpitations Lab Data 06/16/24 17:07 06/16/24 17:07 Labs: Lab Results 06/16/24 Range/Units 17:07 WBC 8.9 (4.5-11.0) X10^3/uL RBC 5.35 (4.5-5.9) X10^6/uL Hgb 16.7 (13.5-17.5) g/dL Hct 48.8 (41-53) % MCV 91.3 (80-100) fL MCH 31.2 (26-34) PG MCHC 34.2 (30-36) % RDW 13.2 (11.6-14.8) % Plt Count 263 (150-400) X10^3/uL Neut % (Auto) 58.2 (50-75) % Lymph % (Auto) 31.8 (25-40) % [place] % (Auto) 7.9 (3-14) % Eos % (Auto) 1.3 L (2-4) % Baso % (Auto) 0.8 (0-2) % Neut # (Auto) 5200 (0330-9857) /uL Lymph # (Auto) 2800 (0773-8516) /uL [place] # (Auto) 700 (0-900) /uL Eos # (Auto) 100 (0-450) /uL Baso # (Auto) 100 (0-100) /uL PT 11.5 (9.4-12.5) SECONDS INR 1.0 (0.9-1.3) APTT 31 (25.1-36.5) SECONDS D-Dimer 465 (<500) ng/ml Sodium 140 (137-145) mmol/L Potassium 4.4 (3.4-5.1) mmol/L Chloride 107 (98-107) mmol/L Carbon Dioxide 24 (22-32) mmol/L BUN 11 (9-20) mg/dL Creatinine 0.85 (0.66-1.25) mg/dL Estimated GFR > 60 (>60) mL/min BUN/Creatinine Ratio 12.9 (6-22) Glucose 92 (70-100) mg/dL Calcium 9.3 (8.4-10.2) mg/dL Magnesium 2.1 (1.6-2.3) mg/dL Total Bilirubin 0.5 (0.2-1.3) mg/dL AST 24 (17-59) IU/L ALT 26 (<50) IU/L Alkaline Phosphatase 60 (38-126) U/L Total Creatine Kinase 57 (55-170) U/L Troponin I < 0.012 (0.01-0.034) ng/mL NT-Pro-B Natriuret Pep < 20 (<125) pg/mL Total Protein 7.4 (6.3-8.2) g/dL Albumin 4.4 (3.5-5.0) g/dL Globulin 3.0 (1.7-4.1) g/dL Albumin/Globulin Ratio 1.5 (1.0-2.8) Lipase 94 (23-300) U/L Imaging Data Chest x-ray: Radiologist's Impresson: PROCEDURE: XR CHEST 1V INDICATIONS: chest pain TECHNIQUE: One view of the chest was acquired. COMPARISON: [facility], , XR CHEST 1V, 12/15/2020, 18:03. [facility], , XR CHEST 1V, 12/25/2017, 13:52. FINDINGS: Surgical changes and devices: None. Lungs and pleura: Low lung volumes. No dense consolidation or pleural effusions. Mediastinum: Heart size is normal and unchanged Bones and chest wall: Degenerative changes IMPRESSION: Low lung volumes. No acute radiographic abnormality on this single view study. Dictated by: Moody Rizo M.D. on 06/16/2024 at 16:36 Approved by: Moody Rizo M.D. on 06/16/2024 at 16:36 ECG Data Interpretation: Normal sinus rhythm at 61 beats per minute. Normal MT. No ST T wave changes, no STEMI MDM Narrative Medical decision making narrative: Well-appearing patient with episode palpitations and lightheadedness at home. Has resolved since arrival to the emergency department. 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 Laboratory work, D-dimer, troponin, chest x-ray imaging all negative for acute concerning process. With normal D-dimer and no calf tenderness for several days no indication for ultrasound imaging at this time. Patient counseled on all lab and imaging findings. Recommended PCP follow up. Refill of sertraline and clonidine sent to pharmacy of choice per patient request. ED return precautions discussed at bedside. Discharge Plan Departure Patient Disposition: Home Clinical Impression: Chest pain, Palpitations Instructions: DI for Palpitations Activity Restrictions/Additional Instructions: Your blood work, EKG, and chest x-ray imaging today did not show any signs of heart attack or blood clot. A refill of your clonidine and sertraline has been sent to your pharmacy. Follow up with your primary care doctor. If you have any new or worsening symptoms please feel free to return to the emergency department for repeat exam. Prescriptions: New sertraline 50 mg tablet 75 mg PO DAILY Qty: 60 0RF clonidine HCl 0.2 mg tablet 0.2 mg PO BEDTIME Qty: 30 0RF No Action clonidine HCl 0.2 mg tablet 0.2 mg PO BEDTIME Qty: 30 1RF amoxicillin 500 mg capsule 500 mg PO BID Qty: 20 0RF sertraline 50 mg tablet 75 mg PO DAILY Qty: 45 3RF ondansetron 4 mg tablet,disintegrating 4 mg PO Q6H PRN (Reason: nausea and vomiting) Qty: 14 0RF Referrals: Tayler Singh ARNP [Primary Care Provider] - Stand Alone Forms: Patient Portal/API/Survey
--- NOTE | 2024-06-16 18:47 | PC.NURSE ---
Patient states at work two days ago he felt a sudden pain that took him to his knees. Pain resolved after couple minutes. Denies an injury or trauma and no pain at present. patient reports since then he has felt anxious and concerned that he could of had a blood clot. Denies chest pain or shortness of breath at this time. Vision normal at his time.
[2024-06-16 20:23] LABS: D Dimer 465 ng/ml (<500)
== END 2024-06-16 21:05 | disposition home or self-care (01) ==
PROVIDERS: Emergency Medicine; Emergency Provider Emergency Medicine; PCP Internal Medicine
DX: R07.9 Chest pain, unspecified (principal); R00.2 Palpitations
CPT/HCPCS: 36415; 71045; 80053; 82550; 83690; 83735; 83880; 84484; 85025; 85379; 85610; 85730; 93005; 93010; 99281; 99284